=== PATIENT | female | born 1995 | race African-American/Black ===

== ENCOUNTER 2017-01-28 23:43 | Emergency (ER) | payer OTHER ==
[~2017-01-28] VITALS: Ht 175.3 cm; Wt 75.0 kg
[~2017-01-28 23:43] MED LIST: NITR-58 PO
[2017-01-28 23:51] VITALS: Ht 175.3 cm; Wt 75.0 kg
[2017-01-29] MEDS ORDERED: ONDANSETRON (ODT) 4 MG TAB ODT STA (02:06)
--- NOTE | 2017-01-29 02:38 | ERD ---
ER Documentation Chief Complaint Date/Time DATE: 01/29/17 TIME: 02:31 Chief Complaint PELVIC PAIN AND HPI 21-year-old female presents with emergency department for complaints of pelvic pain started today. Patient describes the pain as cramping pain, 6/10 scale, accompanied with vaginal bleeding. Patient has been having vaginal bleeding for 10 days now. Patient has an IUD in place. Patient denies any fever or chills. Patient denies any hematuria but is complaining of dysuria times, burning pain, 4/10 scale, is worse upon urination. Patient denies any nausea or vomiting. Patient denies any diarrhea or constipation. Patient denies any flank pain. ROS All systems reviewed and are negative except as per history of present illness. Medications Home Meds Active Scripts Phenazopyridine Hcl* (Pyridium*) 200 Mg Tab, 200 MG PO TID Y for URINARY PAIN, # 6 TAB Prov:MYRTLE CAO NP 01/29/17 Ciprofloxacin Hcl* (Ciprofloxacin Hcl*) 500 Mg Tablet, 500 MG PO BID for 10 Days , TAB Prov:MYRTLE CAO NP 01/29/17 Hydrocodone/Acetaminophen ([place] 5-325 Tablet) 1 Each Tablet, 1 TAB PO Q6H for SEVERE PAIN LEVEL 7-10, #20 TAB Prov:MYRTLE CAO NP 01/29/17 Ibuprofen* (Motrin*) 600 Mg Tab, 600 MG PO Q6H Y for PAIN AND OR ELEVATED TEMP, #30 TAB Prov:MYRTLE CAO NP 01/29/17 Nitrofurantoin Monohyd Macrocr* (Macrobid*) 100 Mg Capsr, 100 MG PO BID for 7 Days, CAP Prov:VINAY MOREAU PA-C 08/29/16 Allergies Allergies: Coded Allergies: No Known Allergy (Unverified , 03/09/13) PMhx/Soc Medical and Surgical Hx: pt denies Medical Hx, pt denies Surgical Hx History of Surgery: No Anesthesia Reaction: No Hx Neurological Disorder: No Hx Respiratory Disorders: No Hx Cardiac Disorders: No Hx Psychiatric Problems: No Hx Miscellaneous Medical Probl: No Hx Alcohol Use: No Hx Substance Use: No Hx Tobacco Use: No Smoking Status: Never smoker Physical Exam Vitals Vital Signs Date Time Temp Pulse Resp B/P Pulse Ox O2 Delivery O2 Flow Rate FiO2 01/29/17 04:56 89 20 125/63 100 Room Air 01/28/17 23:51 98.7 108 20 110/57 98 Physical Exam GENERAL: The patient is well developed and appropriate for usual state of health, in no apparent distress. CHEST: Clear to auscultation bilaterally. There are no rales, wheezes or rhonchi. HEART: Regular rate and rhythm. No murmurs, clicks, rubs or gallops. No S3 or S4. ABDOMEN: Soft, nontender and nondistended. Good bowel sounds. No rebound or guarding. No gross peritonitis. No gross organomegaly or masses. No Galeano sign or McBurney point tenderness. BACK: No midline or flank tenderness. EXTREMITIES: Equal pulses bilaterally. There is no peripheral clubbing, cyanosis or edema. No focal swelling or erythema. Full range of motion. Grossly neurovascularly intact. NEURO: Alert and oriented. Cranial nerves 2-12 intact. Motor strength in all 4 extremities with 5/5 strength. Sensation grossly intact. Normal speech and gait. SKIN: There is no apparent rash or petechia. The skin is warm and dry. HEMATOLOGIC AND LYMPHATIC: There is no evidence of excessive bruising or lymphedema. No gross cervical, axillary, or inguinal lymphadenopathy. Result Diagram: 01/29/17 0307 01/29/17 0206 Results 24 hrs Laboratory Tests Test 01/29/17 02:06 01/29/17 03:07 Sodium Level 142mmol/L Potassium Level 3.8mmol/L Chloride Level 102mmol/L Carbon Dioxide Level 26mmol/L Anion Gap 18 Blood Urea Nitrogen 10mg/dl Creatinine 0.65mg/dl Glucose Level 102mg/dl Calcium Level 9.5mg/dl Total Bilirubin 0.2mg/dl Direct Bilirubin 0.00mg/dl Indirect Bilirubin 0.2mg/dl Aspartate Amino Transf (AST/SGOT) 20IU/L Alanine Aminotransferase (ALT/SGPT) 18IU/L Alkaline Phosphatase 104IU/L Total Protein 9.0g/dl Albumin 4.8g/dl Globulin 4.20g/dl Albumin/Globulin Ratio 1.14 Lipase 23U/L White Blood Count 10.810^3/ul Red Blood Count 4.8710^6/ul Hemoglobin 13.9g/dl Hematocrit 42.0% Mean Corpuscular Volume 86.2fl Mean Corpuscular Hemoglobin 28.5pg Mean Corpuscular Hemoglobin Concent 33.1g/dl Red Cell Distribution Width 12.5% Platelet Count 86579^3/UL Mean Platelet Volume 11.1fl Neutrophils % 75.9% Lymphocytes % 15.1% Monocytes % 8.0% Eosinophils % 0.5% Basophils % 0.2% Nucleated Red Blood Cells % 0.0/100WBC Neutrophils # 8.210^3/ul Lymphocytes # 1.610^3/ul Monocytes # 0.910^3/ul Eosinophils # 0.110^3/ul Basophils # 0.010^3/ul Nucleated Red Blood Cells # 0.010^3/ul Urine Color LT. YELLOW Urine Clarity CLEAR Urine pH 6.0 Urine Specific [place] 1.025 Urine Ketones TRACE Urine Nitrite NEGATIVE Urine Bilirubin NEGATIVE Urine Urobilinogen 0.2 E.U./dL Urine Leukocyte Esterase 2+ Urine Microscopic RBC 0-2/HPF Urine Microscopic WBC >50/HPF Urine Squamous Epithelial Cells FEW Urine Bacteria FEW Urine Hemoglobin 1+ Urine Glucose NEGATIVE% Urine Total Protein NEGATIVE Current Medications Medications (Trade) Dose Ordered Sig/Claus Route PRN Reason Start Time Stop Time Status Last Admin Dose Admin Ondansetron HCl (Zofran Odt) 4 mg ONCE STAT ODT 01/29/17 02:06 01/29/17 02:07 DC 01/29/17 03:29 Patient was given Zofran here in the emergency department. After treatment, patient was able to tolerate po fluids here in the emergency department without any vomiting. There is no signs and symptoms of dehydration. PROCEDURE: ULTRASOUND PELVIS CLINICAL INDICATION: 21-year-old female with pelvic pain. TECHNIQUE: Multiple sonographic images of the pelvis were obtained utilizing a transabdominal and endovaginal technique. The images were reviewed on a PACS workstation. COMPARISON: None. FINDINGS: The uterus is visualized and measures 5.9 x 3.6 x 4.7 cm. There is an intrauterine device identified within the endometrial canal. The endometrial echo complex is within normal limits and measures 5.8 mm. There is no evidence for free fluid. The right ovary has a normal echotexture and measures 4.6 x 2.3 x 2.4 cm. The left ovary has a normal echotexture and measures 3.9 x 1.8 x 2.0 cm. Multiple small bilateral ovarian follicular cysts are seen. There is flow identified within the ovaries bilaterally. No adnexal masses are noted. IMPRESSION: 1. Multiple small bilateral ovarian follicular cysts. 2. Intrauterine device. .Yuan Lopez MD, Date Time Electronically viewed and signed by .Yuan Lopez MD, on 01/29/2017 03:33 .M/ CC: MYRTLE CAO BUNG SEWER Procedures/MDM Medical Decision Making: Patient's symptoms of pelvic pain can be from the ovarian cyst, patient also has urinary tract infection. The symptoms of pyelonephritis. No symptoms of ovarian torsion. IUD is in place. There is low suspicion for abdominal emergencies at this time. Patients abdominal exam is normal at this time. Patients radiology exam does not show any abdominal emergencies at this time. There is low suspicion for appendicitis, cholecystitis , abdominal aortic aneurysms or peritonitis at this time. There is low suspicion for sepsis. Patient appears well and is hemodynamically stable. Disposition: Home. Condition: Stable Prescription ibuprofen, [place], ciprofloxacin, Pyridium, Zofran Instructions: Patient is advised to take medications as prescribed. Patient is advised to rest, increase fluid intake and do brat diet for next 1-2 days and progress as tolerated. Patient is advised that if symptoms are worse, severe abdominal pain, uncontrolled vomiting, high fever, severe flank pain, worst signs and symptoms, to return to the emergency department immediately. Otherwise, patient can follow up with primary care doctor in 5-7 days. Departure Diagnosis: Primary Impression: Urinary tract infection Urinary tract infection type: acute cystitis Hematuria presence: without hematuria Qualified Code: N30.00 - Acute cystitis without hematuria Additional Impression: Ovarian cyst Laterality: bilateral Qualified Code: N83.201 - Cysts of both ovaries Condition: Stable Patient Instructions: Ovarian Cyst Additional Instructions: : Patient is advised to take medications as prescribed. Patient is advised to rest, increase fluid intake and do brat diet for next 1-2 days and progress as tolerated. Patient is advised that if symptoms are worse, severe abdominal pain , uncontrolled vomiting, high fever, severe flank pain, worst signs and symptoms , to return to the emergency department immediately. Otherwise, patient can follow up with primary care doctor in 5-7 days. MYRTLE CAO NP Jan 29, 2017 02:38
[2017-01-29 03:22] LABS: ADD SCAN DIFF NO; BASOPHILS % 0.2 % (0.0-2.0); EOSINOPHILS # 0.1 10^3/ul (0.0-0.5); EOSINOPHILS % 0.5 % (0.0-7.0); HEMOGLOBIN 13.9 g/dl (12.0-16.0); LYMPHOCYTES # 1.6 10^3/ul (0.8-2.9); LYMPHOCYTES % 15.1 % (15.0-51.0); MEAN CORPUSCULAR HEMOGLOBIN 28.5 pg (29.0-33.0); MEAN CORPUSCULAR HGB CONC 33.1 g/dl (32.0-37.0); MEAN CORPUSCULAR VOLUME 86.2 fl (82.0-101.0); MEAN PLATELET VOLUME 11.1 fl (7.4-10.4); MONOCYTE # 0.9 10^3/ul (0.3-0.9); NEUTROPHIL # 8.2 10^3/ul (1.6-7.5); NEUTROPHILS % 75.9 % (39.0-77.0); PLATELET COUNT 252 10^3/UL (140-415); RED BLOOD COUNT 4.87 10^6/ul (4.20-5.40); RED CELL DISTRIBUTION WIDTH 12.5 % (11.5-14.5); WHITE BLOOD COUNT 10.8 10^3/ul (4.8-10.8)
--- NOTE | 2017-01-29 03:33 | RADRPT ---
PROCEDURE: ULTRASOUND PELVIS CLINICAL INDICATION: 21-year-old female with pelvic pain. TECHNIQUE: Multiple sonographic images of the pelvis were obtained utilizing a transabdominal and endovaginal technique. The images were reviewed on a PACS workstation. COMPARISON: None. FINDINGS: The uterus is visualized and measures 5.9 x 3.6 x 4.7 cm. There is an intrauterine device identified within the endometrial canal. The endometrial echo complex is within normal limits and measures 5. 8 mm. There is no evidence for free fluid. The right ovary has a normal echotexture and measures 4.6 x 2.3 x 2.4 cm. The left ovary has a normal echotexture and measures 3.9 x 1.8 x 2.0 cm. Multiple small bilateral ovarian follicular cysts are seen. There is flow identified within the ovaries michi aterally. No adnexal masses are noted. IMPRESSION: 1. Multiple small bilateral ovarian follicular cysts. 2. Intrauterine device. .Yuan Lopez MD, MD Date Time Electronically viewed and signed by .Yuan Lopez MD, on 01/29/2017 03:33 .M/
[2017-01-29 03:38] LABS: ALBUMIN 4.8 g/dl (3.3-4.9)
[2017-01-29 03:39] LABS: POTASSIUM 3.8 mmol/L (3.5-5.1)
[2017-01-29 03:41] LABS: BILIRUBIN,INDIRECT 0.2 mg/dl (0-1.1); BILIRUBIN,TOTAL 0.2 mg/dl (0.2-1.3); CREATININE 0.65 mg/dl (0.44-1.00)
[2017-01-29 03:42] LABS: ALBUMIN/GLOBULIN RATIO 1.14; CALCIUM 9.5 mg/dl (8.4-10.2)
[2017-01-29 03:46] LABS: ADD UMIC YES; URINE BILIRUBIN (Dip) NEGATIVE (NEGATIVE); URINE BLOOD (Dip) 1+ (NEGATIVE); URINE COLOR LT. YELLOW (YELLOW); URINE GLUCOSE (Dip) NEGATIVE (NEGATIVE); URINE KETONES (Dip) TRACE (NEGATIVE); URINE LEUKOCYTE ESTERASE (Dip) 2+ (NEGATIVE); URINE NITRITE (Dip) NEGATIVE (NEGATIVE); URINE TOTAL PROTEIN (Dip) NEGATIVE (NEGATIVE); URINE UROBILINOGEN (Dip) 0.2 E.U./dL (0.1-1.0)
[2017-01-29 03:54] LABS: BACTERIA,URINE FEW; SQUAMOUS EPITHELIAL CELL,UR FEW; URINE RBCS 0-2 /HPF (0)
[2017-01-29] MEDS ORDERED: PHEN-538 PO (04:37)
[2017-01-29] MEDS ORDERED: CIPR500T4 PO (04:37)
[2017-01-29] MEDS ORDERED: IBUP-1542 PO (04:37)
[2017-01-29] MEDS ORDERED: HYDR-906 PO (04:37)
[2017-01-29 04:56] VITALS: BP 125/63; PULSE 89; RESP 20
== END 2017-01-29 04:58 | disposition home or self-care (01) ==
LOC: FTE 23:43
DX: N30.00 Acute cystitis without hematuria (principal); N83.201 Unspecified ovarian cyst, right side
CPT/HCPCS: 36415; 76830; 76856; 80053; 81001; 81003; 83690; 85025; Z7502; Z7610

== ENCOUNTER 2017-02-23 01:32 | Emergency (ER) | payer OTHER ==
[~2017-02-23] VITALS: Ht 175.3 cm; Wt 74.5 kg
[~2017-02-23 01:32] MED LIST changes: +CIPR500T4 PO; +HYDR-906 PO; +IBUP-1542 PO; +PHEN-538 PO
[2017-02-23 02:01] VITALS: Ht 175.3 cm; Wt 74.5 kg
[2017-02-23] MEDS ORDERED: IBUPROFEN 600 MG TAB PO ONE (03:30)
[2017-02-23 04:04] LABS: ADD SCAN DIFF NO
[2017-02-23 04:07] LABS: BASOPHILS % 0.5 % (0.0-2.0); EOSINOPHILS # 0.1 10^3/ul (0.0-0.5); EOSINOPHILS % 1.5 % (0.0-7.0); HEMATOCRIT 40.1 % (37.0-47.0); HEMOGLOBIN 12.8 g/dl (12.0-16.0); LYMPHOCYTES # 2.3 10^3/ul (0.8-2.9); LYMPHOCYTES % 37.8 % (15.0-51.0); MEAN CORPUSCULAR HEMOGLOBIN 27.9 pg (29.0-33.0); MEAN CORPUSCULAR HGB CONC 31.9 g/dl (32.0-37.0); MEAN CORPUSCULAR VOLUME 87.4 fl (82.0-101.0); MEAN PLATELET VOLUME 10.9 fl (7.4-10.4); MONOCYTE # 0.5 10^3/ul (0.3-0.9); MONOCYTES % 7.8 % (0.0-11.0); NEUTROPHIL # 3.2 10^3/ul (1.6-7.5); NEUTROPHILS % 52.2 % (39.0-77.0); PLATELET COUNT 273 10^3/UL (140-415); RED BLOOD COUNT 4.59 10^6/ul (4.20-5.40); RED CELL DISTRIBUTION WIDTH 12.7 % (11.5-14.5); WHITE BLOOD COUNT 6.2 10^3/ul (4.8-10.8)
--- NOTE | 2017-02-23 05:31 | ERD ---
ER Documentation Chief Complaint Date/Time DATE: 02/23/17 TIME: 05:25 Chief Complaint Pt reports ovarian pain r/t ovarian cyst dx here HPI 21-year-old female complaining of left-sided pelvic pain 1 month. Pain is intermittent, she feels like "something is pulling" when she moves. Patient was seen here on about 20 days ago for the same complaints, was told that she has ovarian cysts. Patient was advised to follow-up with her animal shelter clerk, however she has not done so. The pain has not changed in intensity or frequency since the last visit. Patient also reports vaginal bleeding for last 1.5 month. Patient claims her bleeding has been heavy, soak through an overnight pad every 3 hours. She has been feeling dizzy and lightheaded last 2- 3 days. Denies fever or chills. Denies syncope. Denies chest pain or shortness of breath. Patient is sexually active, had 2 partners in the last 12 month. Denies vaginal itching, burning, pain, or discharge. ROS All systems reviewed and are negative except as per history of present illness. Medications Home Meds Active Scripts Phenazopyridine Hcl* (Pyridium*) 200 Mg Tab, 200 MG PO TID Y for URINARY PAIN, # 6 TAB Prov:MYRTLE CAO NP 01/29/17 Ciprofloxacin Hcl* (Ciprofloxacin Hcl*) 500 Mg Tablet, 500 MG PO BID for 10 Days , TAB Prov:MYRTLE CAO NP 01/29/17 Hydrocodone/Acetaminophen ([place] 5-325 Tablet) 1 Each Tablet, 1 TAB PO Q6H for SEVERE PAIN LEVEL 7-10, #20 TAB Prov:MYRTLE CAO NP 01/29/17 Ibuprofen* (Motrin*) 600 Mg Tab, 600 MG PO Q6H Y for PAIN AND OR ELEVATED TEMP, #30 TAB Prov:MYRTLE CAO NP 01/29/17 Nitrofurantoin Monohyd Macrocr* (Macrobid*) 100 Mg Capsr, 100 MG PO BID for 7 Days, CAP Prov:VINAY MOREAU PA-C 08/29/16 Allergies Allergies: Coded Allergies: No Known Allergy (Unverified , 03/09/13) PMhx/Soc Medical and Surgical Hx: pt denies Surgical Hx History of Surgery: No Anesthesia Reaction: No Hx Neurological Disorder: No Hx Respiratory Disorders: No Hx Cardiac Disorders: No Hx Psychiatric Problems: No Hx Miscellaneous Medical Probl: Yes (ovarian cysts) Hx Alcohol Use: No Hx Substance Use: No Hx Tobacco Use: No Smoking Status: Never smoker Physical Exam Vitals Vital Signs Date Time Temp Pulse Resp B/P Pulse Ox O2 Delivery O2 Flow Rate FiO2 02/23/17 02:01 98.3 76 16 114/68 100 Physical Exam General impression: Well-developed, well-nourished. Alert, oriented, in no acute distress Head: Normocephalic, atraumatic. Eyes: PERRL, EOM normal. Sclerae are normal. Conjunctiva not injected. Neck: Supple, nontender. No lymphadenopathy. No nuchal rigidity. Respiration: Normal respiratory effort. Lungs clear to auscultate bilaterally. No wheezes, rales or rhonchi. Cardiovascular: Regular rate and rhythm. No murmurs or extra heart sounds. Abdomen: Abdomen normal to inspection. Nontender. No masses or organomegaly. Bowel sounds normal. Back: Normal to inspection. No midline spine tenderness. No CVA tenderness. Extremities: Extremities normal to inspection, nontender. ROM normal. Neuro: Mental status normal, speech normal. [employer] grossly intact. Skin: Normal turgor. No rash or lesions. Psych: Normal mood and affect. Result Diagram: 02/23/17 0345 Results 24 hrs Laboratory Tests Test 02/23/17 03:45 White Blood Count 6.210^3/ul Red Blood Count 4.5910^6/ul Hemoglobin 12.8g/dl Hematocrit 40.1% Mean Corpuscular Volume 87.4fl Mean Corpuscular Hemoglobin 27.9pg Mean Corpuscular Hemoglobin Concent 31.9g/dl Red Cell Distribution Width 12.7% Platelet Count 55459^3/UL Mean Platelet Volume 10.9fl Neutrophils % 52.2% Lymphocytes % 37.8% Monocytes % 7.8% Eosinophils % 1.5% Basophils % 0.5% Nucleated Red Blood Cells % 0.0/100WBC Neutrophils # 3.210^3/ul Lymphocytes # 2.310^3/ul Monocytes # 0.510^3/ul Eosinophils # 0.110^3/ul Basophils # 0.010^3/ul Nucleated Red Blood Cells # 0.010^3/ul Current Medications Medications (Trade) Dose Ordered Sig/Claus Route PRN Reason Start Time Stop Time Status Last Admin Dose Admin Ibuprofen (Motrin) 600 mg ONCE ONCE PO 02/23/17 03:30 02/23/17 03:31 DC Procedures/MDM Well-appearing 21-year-old female presented ED was left-sided pelvic pain, irregular vaginal bleeding, and dizziness. Ibuprofen given to the patient in the ED for pain. CBC was obtained to rule out anemia. Her hemoglobin is 12.8, hematocrit 40.1. She does not have anemia. Pelvic ultrasound was obtained, normal endometrium and ovaries are seen on ultrasound. IUD was noted as well. I doubt ovarian torsion, ruptured ovarian cyst, or ectopic . It is uncertain the cause of her pelvic pain at this time, however I cannot completely rule out abdominal muscle strain. Patient given referral to community clinics, as well as animal shelter clerk for follow-up. Patient appears well , stable for discharge and outpatient management. Medical decision making shared with patient and family. Education provided to patient and family. Patient and family expressed understanding of the plan. Medications on discharge: None. Follow-up: Primary care provider in 2-3 days or return to ED if worse. Departure Diagnosis: Primary Impression: Pelvic pain Condition: Good Patient Instructions: Pelvic Pain, Unknown Cause Referrals: [facility] YOU HAVE RECEIVED A MEDICAL SCREENING EXAM AND THE RESULTS INDICATE THAT YOU DO NOT HAVE A CONDITION THAT REQUIRES URGENT TREATMENT IN THE EMERGENCY DEPARTMENT. FURTHER EVALUATION AND TREATMENT OF YOUR CONDITION CAN WAIT UNTIL YOU ARE SEEN IN YOUR DOCTORS OFFICE WITHIN THE NEXT 1-2 DAYS. IT IS YOUR RESPONSIBILITY TO MAKE AN APPOINTMENT FOR FOLOW-UP CARE. IF YOU HAVE A PRIMARY DOCTOR --you should call your primary doctor and schedule an appointment IF YOU DO NOT HAVE A PRIMARY DOCTOR YOU CAN CALL OUR PHYSICIAN REFERRAL HOTLINE AT IF YOU CAN NOT AFFORD TO SEE A PHYSICIAN YOU CAN CHOSE FROM THE FOLLOWING [facility] [address] [facility] [address] [facility] [address] [facility] [address] [facility] [address] [facility] [facility] [address] STOCK CRANE OPER[place] [address] [facility] [address] [place] [address] OFFICE FAX , [facility] [address] [place] [address] [address] MCCLAIN, [address] [address] [place] [address] [address] CASTELLANOS, [facility] [address] [facility], [address], [facility] [address] [address], [facility] [address] [facility] [place] [address] [facility] [address] [place] [address] [address] [facility] [address] [address] [facility], [facility] [address] [address] [address] [facility], [facility] [address] [address] [facility] [address] [address] [place], [place] [id number] [facility] Hours: 8:00 am - 5:00 pm Additional Instructions: Call your primary care doctor TOMORROW for an appointment during the next 2-3 days.See the doctor sooner or return here if your condition worsens before your appointment time. BERLIN GAY NP Feb 23, 2017 05:31
--- NOTE | 2017-02-23 05:34 | RADRPT ---
PROCEDURE: Pelvic ultrasound. CLINICAL INDICATION: Pelvic pain. TECHNIQUE: Multiple sonographic images of the pelvis were obtained utilizing a transabdominal and endovaginal technique. The images were reviewed on a PACS workstation. COMPARISON: 01/29/2017. FINDINGS: The uterus is visualized and measures 8.7 x 3.5 x 5.2 cm. No abnormal uterine mass is identified. T he endometrial echo complex is homogeneous and measures 3.1 mm. There is trace fluid within the endo metrial canal. There is an intrauterine device present. There is no evidence for free fluid. The right ovary has a normal echotexture and measures 3.3 x 1. 1 x 2.4 cm. The left ovary has a normal echotexture and measures 2.3 x 1.1 x 1.5 cm. There is norm al flow to both ovaries. No adnexal masses are identified. IMPRESSION: Unremarkable pelvic ultrasound. Intrauterine device in place. .Rashad Hebert MD, Date Time Electronically viewed and signed by .Rashad Hebert MD, on 02/23/2017 05:34 .T/
[2017-02-23 05:35] VITALS: BP 112/70; PULSE 78; RESP 16; TEMP 98.3
== END 2017-02-23 05:37 | disposition home or self-care (01) ==
LOC: FTE 01:32
DX: R10.2 Pelvic and perineal pain (principal)
CPT/HCPCS: 76830; 76856; 85025; Z7502; Z7610

== ENCOUNTER 2018-03-10 22:12 | Emergency (ER) | END 2018-03-11 05:53 | disposition home or self-care (01) ==